=== PATIENT | male | born 1970 | race Caucasian/White ===

== ENCOUNTER → 2018-12-15 | Outpatient (CLI) | payer BC ==
[~2018-12-15] VITALS: Ht 195.6 cm; Wt 88.5 kg
[~2018-12-15] MED LIST: ATENOLOL 25 MG25 M1 PO; COZAAR 25 MG TA25 M1 PO; OMEPRAZOLE40 MG PO
[2018-12-15 07:25] VITALS: BP 120/67
--- NOTE | 2018-12-15 09:50 | TEE ---
[facility] [address] [place] [address] TRANSESOPHAGEAL ECHOCARDIOGRAM Name: SADI HAMMOND Room #: REG CL [facility]#: [id number] ������������� Admission: 12/15/18 ������������� Attend Phys: Brent Edwards, Discharge: ��� ������������� ��� Date of : 70 Date of Service: 12/15/18 0950 �� Report #: [id number] �������� ��������������������������������������������[id number] THIS REPORT FOR: //name// APPROVED REPORT Study performed: 12/15/2018 07:58:09 EXAM: Comprehensive 2D, Doppler, and color-flow Echocardiogram Patient Location: Out-Patient Room #: 9 Status: routine BSA: 2.21 HR: 56 bpm BP: 116/65 mmHg Rhythm: Bradycardia Other Information Study Quality: Excellent Indications Dilated Aorta Echo Enhancing Agent Indication: Rule out Shunt Agent(s) / Amount(s) Used: Agitated Saline 7 cc 2D Dimensions LVOT Diam: 20.06 (18-24mm) Procedure After obtaining informed consent, patient underwent transesophageal echo in the [employer]. Type of Sedation : Conscious Sedation Sedation was administered by Christi Jorge RN. Sedation was achieved intravenously with: Versed (4 mg) Fentanyl (100 mcg) Transesophageal probe was inserted and advanced into esophagus without difficulty by Brent Edwards MD. Echo enhancement indication: R/O Septal defect. Echo enhancement agent administered: Agitated Saline The KAM was performed without complications. Throughout the procedure, the blood pressure, pulse oximetry, cardiac rhythm, and rate were monitored. The patient tolerated the procedure without adverse effects. Recovery [facility] [address] [place] [address] TRANSESOPHAGEAL ECHOCARDIOGRAM Name: SADI HAMMOND Room #: REG CL [facility]#: [id number] ������������� Admission: 12/15/18 ������������� Attend Phys: Brent Edwards, Discharge: ��� ������������� ��� Date of : 70 Date of Service: 12/15/18 0950 �� Report #: [id number] �������� ��������������������������������������������[id number] from conscious sedation was uneventful and vital signs were stable. Left Ventricle The left ventricle is normal size. There is normal LV segmental wall motion. There is normal left ventricular wall thickness. The left ventricular systolic function is normal. The left ventricular ejection fraction is within the normal range. LVEF is 55-60%. Right Ventricle The right ventricle is normal size. The right ventricular systolic function is normal. Atria The left atrium size is normal. No thrombus is visualized in the left atrium or appendage. Interatrial septum is intact without evidence of ASD or PFO. The right atrium size is normal. Chiari network in right atrium Aortic Valve The aortic valve is normal in structure, trileaflet. Moderate, predominantly central aortic regurgitation. There is no aortic valvular stenosis. Mitral Valve The mitral valve is normal in structure. Mild mitral regurgitation. No evidence of mitral valve stenosis. Tricuspid Valve The tricuspid valve is normal in structure. There is no tricuspid valve regurgitation noted. Pulmonic Valve The pulmonary valve is normal in structure. There is no pulmonic valvular regurgitation. Great Vessels Aortic root is dilated at 5 cm Ascending aorta is dilated at 3.9 cm IVC is normal in size and collapses >50% with inspiration. Pericardium There is no pericardial effusion. <Conclusion> The left ventricular systolic function is normal. [facility] [place] [address] [place] [address] TRANSESOPHAGEAL ECHOCARDIOGRAM Name: STEPHANYSADI GORDON Room #: REG [facility]#: [id number] ������������� Admission: 12/15/18 ������������� Attend Phys: Brent Edwards, Discharge: ��� ������������� ��� Date of : 70 Date of Service: 12/15/18 0950 �� Report #: [id number] �������� ��������������������������������������������[id number] There is normal LV segmental wall motion. LVEF 55-60%. No thrombus is visualized in the left atrium or appendage. No shunting by contrast bubble injection The aortic valve is normal in structure, trileaflet. Moderate, predominantly central aortic regurgitation. The mitral valve is normal in structure. Mild mitral regurgitation. Aortic root is dilated at 5.0 cm Ascending aorta is dilated at 3.9 cm There is no pericardial effusion. ��������������������������������������������� <ELECTRONICALLY SIGNED> ���������������������������������������� By: Brent Edwards MD, [facility] ��������������������������������������������� 12/15/18 0950 0950 0950 Brent Edwards MD, FACC /INF
== END | disposition home or self-care (01) ==
LOC: CATH 06:43
DX: I08.0 Rheumatic disorders of both mitral and aortic valves (principal); I77.810 Thoracic aortic ectasia; E78.5 Hyperlipidemia, unspecified; K21.9 Gastro-esophageal reflux disease without esophagitis; Z82.49 Family history of ischemic heart disease and other diseases of the circulatory system; Z98.890 Other specified postprocedural states; Z79.899 Other long term (current) drug therapy; Z87.891 Personal history of nicotine dependence

== ENCOUNTER → 2018-12-24 | Outpatient (CLI) | payer BC ==
[~2018-12-24] VITALS: Ht 195.6 cm; Wt 88.5 kg
[2018-12-24 06:59] VITALS: BP 123/68
--- NOTE | 2018-12-24 09:15 | CATHLAB ---
[facility] [employer] [place] [address] INVASIVE PROCEDURE REPORT Name: STEPHANYSADI GORDON Room #: REG CL [facility]#: [id number] ������������� Admission: 12/24/18 ������������� Attend Phys: Brent Edwards, Discharge: ��� ������������� ��� Date of : 70 Date of Service: 12/24/18 0915 �� Report #: [id number] �������� ��������������������������������������������[id number] THIS REPORT FOR: //name// APPROVED REPORT Study performed: 12/24/2018 07:34:38 Patient Details The patient is a 47 year-old male Event Personnel Brent Edwards Automatic Seamer, Belkis Kuhn RN Gas Analyst, Marjorie Herring Jackson, Valisa Monitor Procedures Performed Left Heart Cath w/or w/o Coronaries [id number] [facility] Supravalvular Aortography Injection [id number] ISVA Indication Chest pain Procedure Narrative The Right Groin^ was infiltrated with 1% Lidocaine subcutaneous anesthesia. A PINNACLE 6FR Sheath #[id number] sheath was inserted into the RFA^. Coronary angiography was performed using coronary diagnostic catheters. The right coronary system was accessed and visualized with a JR4 catheter. The left coronary system was accessed and visualized with a JL5 catheter. The left ventricle was accessed and visualized with a PIGTAIL catheter. Closure device was deployed with a Fr MYNXGRIP 6/7F #[id number]. The patient tolerated the procedure well and there were no complications associated with the procedure. There was no hematoma. Intraoperative Conscious Sedation Sedation start time: 748 Case end Time: 819 Fentanyl 75 mcg Versed 2 mg Fluoro Time: 1.54 minutes Dose: DAP 2899.00 cGycm2 315 mGy Contrast Type and Amount: Omnipaque 100 ml Coronary Angiography The patient's coronary anatomy is right dominant. [facility] [address] [place] [address] INVASIVE PROCEDURE REPORT Name: SADI HAMMOND Room #: REG [facility]#: [id number] ������������� Admission: 12/24/18 ������������� Attend Phys: Brent Edwards, Discharge: ��� ������������� ��� Date of : 70 Date of Service: 12/24/18 0915 �� Report #: [id number] �������� ��������������������������������������������[id number] Diagnostic Cath Left Main Normal left main LAD Normal left anterior descending Diagonal 1 Large, single and angiographically normal diagonal branch Circumflex Large but nondominant circumflex. Angiographically normal OM1 Single, large marginal branch, angiographically normal Right Coronary The right coronary was dominant and angiographically normal R PDA Normal, large posterior descending branch RPLV Normal posterolateral branch Left Ventriculography The left ventricle is normal in size with normal contractility. The left ventricular ejection fraction is estimated to be 60-65%. Left ventricular wall motion abnormalities are not present. There is no mitral insufficiency. Supravalvular aortography demonstrated dilated aortic root and sinuses of Valsalva. No aortic dissection. The aorta tapered to a normal caliber. Mild to moderate aortic insufficiency Hemodynamics The aortic pressure is 115/64 mmHg with a mean of 91 mmHg. The left ventricular pressure is 130/12 mmHg with a mean of mmHg. The left ventricular end diastolic pressure is 34 mmHg. Conclusion 1. Normal global and regional left ventricular systolic function. EF 65% 2. Dilated aortic root and sinuses of valsalva. Mild-moderate aortic insufficiency 3. Normal coronary vasculature. Right coronary dominant circulation ��������������������������������������������� <ELECTRONICALLY SIGNED> ���������������������������������������� By: Brent Edwards MD, FACC ��������������������������������������������� 12/24/18914 4 4 Brent Edwards MD, FACC /INF
--- NOTE | 2018-12-24 16:11 | EKG ---
[address] [place] [address] ELECTROCARDIOGRAM REPORT Name: SADI HAMMOND Room #: REG CLI [facility]#: [id number] ������������������ Admission: 12/24/18 ������������������ Attend Phys: Brent Edwards MD, Discharge: ������������������ Date of : 70 Report #: [id number] ����������������������������������������������������������������� [id number] THIS REPORT FOR: //name// [facility] Test Date: 2018-12-24 Test Time: 07:28:29 Pat Name: SADI HAMMOND Department: Room: Gender: Information Technology Assistant: Cheryl ANAND : 1970 Requested By: Brent Edwards Order Number: [id number] MD: Brent Edwards Measurements Intervals [place]ffner Rate: 64 P: 65 UT: 189 QRS: 23 QRSD: 105 T: 49 QT: 399 QTc: 412 Interpretive Statements Sinus rhythm Normal tracing Compared to ECG 03/27/1990 00:45:00 Right-axis deviation no longer present Electronically Signed On 12-24-2018 16:10:51 CDT by Brent Edwards [email or web address] ��������������������������������������������� <ELECTRONICALLY SIGNED> ���������������������������������������� By: Brent Edwards MD, [facility] ��������������������������������������������� 12/24/18 1610 D: [id number] Brent Edwards MD, FAC /EPI
== END | disposition home or self-care (01) ==
LOC: CATH 06:32
DX: I35.1 Nonrheumatic aortic (valve) insufficiency (principal); I77.810 Thoracic aortic ectasia; I10 Essential (primary) hypertension; E78.5 Hyperlipidemia, unspecified; Z87.891 Personal history of nicotine dependence; Z79.899 Other long term (current) drug therapy

== ENCOUNTER → 2020-05-18 | Outpatient (CLI) | payer BC | LOC: SJCVCIMAG 08:45 | PROVIDERS: ATTEND Internal Medicine | DX: I35.1 Nonrheumatic aortic (valve) insufficiency (principal) ==

== ENCOUNTER → 2021-05-31 | Outpatient (CLI) | payer BC | LOC: SJCVCIMAG 10:17 | PROVIDERS: ATTEND Internal Medicine | DX: I08.8 Other rheumatic multiple valve diseases (principal) ==